=== PATIENT | male | born 1990 | race Caucasian/White ===

== ENCOUNTER → 2018-12-05 | Outpatient (CLI) | payer OTHER ==
--- NOTE | 2018-12-06 08:22 | RAD ---
EXAM DESCRIPTION: Foot,Right 2 Views CLINICAL HISTORY: FOOT PAIN COMPARISON: None. TECHNIQUE: 2 views right FINDINGS: An oblique fracture of the midshaft of the proximal phalanx of the first digit of the right foot is demonstrated. The injury is essentially nondisplaced. No further injury is detected. Mild degenerative changes are observed in the ankle. IMPRESSION: Oblique fracture of the midshaft of the proximal phalanx of the first digit is demonstrated. Electronically signed by: Gerson Cancino MD 12/06/2018 8:20 AM CDT
== END ==
LOC: RAD 15:29
PROVIDERS: ATTEND Nurse Practitioner Family
DX: S92.414A Nondisplaced fracture of proximal phalanx of right great toe, initial encounter for closed fracture (principal)